=== PATIENT | female | born 1980 | race African-American/Black ===

== ENCOUNTER 2018-11-21 12:57 | Emergency (ER) | payer OTHER ==
[~2018-11-21] VITALS: Ht 157.5 cm; Wt 71.7 kg
[2018-11-21] MEDS ORDERED: IBUPROFEN 600600 M1 PO (14:49)
[2018-11-21] MEDS ORDERED: NORFLEX100 MG PO (14:49)
[2018-11-21 14:55] VITALS: BP 123/60
== END 2018-11-21 14:56 | disposition home or self-care (01) ==
LOC: ER 12:57 → EDBD 12:57 → ER 14:56
DX: S16.1XXA Strain of muscle, fascia and tendon at neck level, initial encounter (principal); V89.2XXA Person injured in unspecified motor-vehicle accident, traffic, initial encounter; Y92.89 Other specified places as the place of occurrence of the external cause; Y93.89 Activity, other specified; Y99.8 Other external cause status